=== PATIENT | male | born 1990 | race Two or more races ===

== ENCOUNTER 2022-05-13 13:44 | Outpatient (CLI) | payer OTHER | END 2022-05-13 13:45 | disposition home or self-care (01) | LOC: LAB 13:44 | PROVIDERS: ATTEND Obstetrics & Gynecology | DX: Z20.828 Contact with and (suspected) exposure to other viral communicable diseases (principal); Z20.818 Contact with and (suspected) exposure to other bacterial communicable diseases ==

== ENCOUNTER 2025-02-06 00:28 | Emergency (ER) | payer OTHER ==
[~2025-02-06] VITALS: Ht 167.6 cm; Wt 81.6 kg
[2025-02-06] MEDS ORDERED: PROMETHAZINE HCL 50 MG/ML AMPUL IM STA (00:46)
[2025-02-06] MEDS ORDERED: HYOSCYAMINE SULFATE 0.125 MG TAB.SUBL SL STA (00:46)
[2025-02-06] MEDS ORDERED: FAMOTIDINE/PF 20 MG/2 ML VIAL IV PUSH STA (00:46)
[2025-02-06] MEDS ORDERED: LACTOBACILLUS ACIDOPHILUS 1 CAP CAP PO STA (00:47)
[2025-02-06] MEDS ORDERED: 0.9 % SODIUM CHLORIDE 1,000 ML IV ONE (01:00)
[2025-02-06] MEDS ORDERED: PROMETHAZINE HCL 50 MG/ML AMPUL IM ONE (01:09)
[2025-02-06] MEDS ORDERED: HYOSCYAMINE SULFATE 0.125 MG TAB.SUBL ONE (01:10)
[2025-02-06] MEDS ORDERED: FAMOTIDINE/PF 20 MG/2 ML VIAL ONE (01:10)
[2025-02-06] MEDS ORDERED: LACTOBACILLUS ACIDOPHILUS 1 CAP CAP PO ONE (01:10)
[2025-02-06] MEDS ORDERED: SYNTHROID50 MCG PO (01:11)
[2025-02-06 01:56] LABS: BASO % 0.2 % (0.1-1.2); EOS # 0.02 (0.04-0.54); EOS % 0.1 % (0.7-7.0); LYMPH # 0.71 (1.18-3.74); LYMPH % 4.1 % (19.3-53.1); MEAN PLATELET VOLUME 11.10 fl (9.4-12.4); MONO # 0.98 (0.24-0.82); MONO % 5.6 % (4.7-12.5); NEUT # 15.56 (1.56-6.13); NEUT % 89.2 % (34.0-71.1); RED CELL DISTRIBUTION WIDTH 12.5 % (11.6-14.4)
[2025-02-06 02:16] LABS: BUN CREA RATIO 13.0 (7.0-25.0); CREATININE SERUM 1.27 mg/dL (0.70-1.30); GFR 64.17; GLUCOSE FASTING 130.0 mg/dL (65-100); OSMOLALITY SERUM 290.0 MOSM/KG (275-295)
[2025-02-06 06:51] LABS: URINE APPEARANCE Clear; URINE BILIRRUBIN Negative (NEGATIVE); URINE BLOOD Negative; URINE COLOR Yellow; URINE GLUCOSE Negative (NEGATIVE); URINE KETONE 15 (NEGATIVE); URINE LEUKOCYTE Negative; URINE NITRATE Negative; URINE PROTEIN Trace (NEGATIVE); URINE UROBILINOGEN 0.2 E.U./dl
[2025-02-06 06:55] LABS: URINE EPITHELIAL CELLS 7.6 uL (0.0-38.8); URINE RBC 3.8 uL (0.0-20.8); URINE WBC 10.3 uL (0.0-23.2)
[2025-02-06 06:56] LABS: URINE BACTERIA 3.6 uL (0.0-1933); URINE CAST 0.00 uL (0.0-1.40)
[2025-02-06] MEDS ORDERED: ONDANSETRON ODT8 MG PO (08:46)
[2025-02-06] MEDS ORDERED: PEPCID40 MG PO (08:46)
== END 2025-02-06 09:44 ==
LOC: ER 00:28 → EMR PED 00:32 → ER 00:32
PROVIDERS: General Practice
DX: K52.89 Other specified noninfective gastroenteritis and colitis (principal)